=== PATIENT | male | born 1940 | race Caucasian/White ===

== ENCOUNTER 2017-10-31 16:24 | Outpatient (CLI) | payer MEDICARE ==
[~2017-10-31] VITALS: Ht 182.9 cm; Wt 74.9 kg
--- NOTE | ~2017-10-31 | OP ---
PATIENT NAME: MICHAEL CIFUENTES MEDICAL RECORD: [id number] :44 [facility]ATION:[facility] ADMISSION DATE:10/31/17 SURGEON: BRUCE KEENAN MD DATE OF OPERATION: 11/01/2017 PROCEDURES: 1. PTCA stent LAD. 2. Left heart catheterization. 3. Selective coronary angiography. 4. Left ventriculogram. INDICATION: Angina and coronary artery disease. PROCEDURE IN DETAIL: After informed consent was obtained and after a detailed discussion of risks, benefits as well as alternative therapies, the patient elected to proceed with angiogram and angioplasty. The right radial area was prepped and draped in normal sterile fashion. Right radial artery was cannulated via modified Seldinger technique with placement of 6-Israeli sheath. All catheter exchanged through this sheath. FINDINGS: Left ventriculogram was performed in standard 30-degree CASTANEDA view and reveals good cardiac wall motion throughout all segments. Overall ejection fraction estimated at 60%. SELECTIVE CORONARY ANGIOGRAPHY: 1. Left main is with no significant angiographic disease. 2. Left anterior descending has previously placed stents in the mid vessel. Between the stents, there is a non-stented area of at least 80% stenosis. 3. Left circumflex has moderate irregularities, but no flow-limiting stenosis. 4. Right coronary has moderate irregularities, but no flow-limiting stenosis. PTCA STENT OF THE LAD: The stent used was a 3.0 x 22 mm Aryan. Result was 0% residual stenosis. OVERALL IMPRESSION: Successful percutaneous transluminal coronary angioplasty stent of the left anterior descending going from 80% initial stenosis to 0% residual stenosis. TRANSINT:[id number] Voice Confirmation ID: [id number] DOCUMENT ID: [id number] BRUCE KEENAN MD at 1031 CC: [id number] DICTATION DATE: 11/01/17 1243 CHECKROOM CHIEF: 11/01/17 1301 DIS IN 11/01/17 [place] [address]
--- NOTE | ~2017-10-31 | HEMODYNAMI ---
PATIENT:MICHAEL CFIUENTES MEDICAL RECORD: [id number] : 44 [facility] [id number] ADMISSION DATE: 10/31/17 Generatedon:11/01/201712:43 Patient name: MICHAEL CIFUENTES Patient #: [id number] SSN: : 1940 Date of study: 11/01/2017 Page: Of Hemodynamic Procedure Report Patient Data Patient Demographics Procedure consent was obtained First Name: MICHAEL Gender: Male Last Name: ESAU : 1940 [facility] Initial: ALLYSSA Age: 77 year(s) Patient #: [id number] Race: Unknown Additional ID: [id number] Contact details Address: [address] [place] [address] State: [place] City: [place] Zip code: [address] Past Medical History Allergies: No known allergies Admission Admission Data Admission Date: 10/31/2017 Admission Time: 17:55 Room #: D.2126 Lab Results Lab Result Date: 11/01/2017 Lab Result Time: 0:00 Biochemistry Name Units Result Min Max BUN mg/dl 20 --(----)*- 7 18 Creatinine mg/dl 1.4 --(----)*- 0.6 1.3 CBC Name Units Result Min Max Hemoglobin g/dl 15.3 --(-*--)-- 13.5 17.5 Procedure Procedure Types Cath Procedure Diagnostic Procedure C [facility] w/Coronaries Sedation Charges Moderate Sedation up to 15 minutes PCI Procedure Coronary Stent Coronary Stent Initial Procedure Description Procedure Date Procedure Date: 11/01/2017 Procedure Start Time: 12:25 Procedure End Time: 12:43 Procedure Staff Name Function Mitesh Knott MD Performing Physician Leila Palmer RT Monitor Shelby Muir RT Scrub Myron Harris RN Nurse Procedure Data Cath Procedure Fluoroscopy Diagnostic fluoroscopy Total fluoroscopy Time: 4.9 time: 4.9 min min Diagnostic fluoroscopy Total fluoroscopy dose: 174 dose: 174 mGy mGy Contrast Material Contrast Material Type Amount (ml) Isovue 300 69 Entry Location Entry Primary Successful Side Size Upsize Upsize Entry Closure Roca ccessful Closure Location (Fr) 1 (Fr) 2 (Fr) Remarks Device Remarks Radial Right 6 Fr Mechanical artery Short Compression Estimated blood loss: 10 ml Diagnostic catheters Device Type Used For End Catheter Placement DIAGNOSTIC Bridgman 110cm 5 Procedure Fr catheter ([id number]) Procedure Complications No complications Procedure Medications Medication Administration Route Dosage Oxygen etCO2 Nasal cannula 2 l/min Heparin Flush Bag added to field 2 bags (1000units/500ml NS) 0.9% NaCl I.V. 100 ml/hr Radial Cocktail added to field 1 syringe (Verapomil 2mg/Nitro 400mcg/Heparin 1500units) Fentanyl I.V. 50 mcg Versed I.V. 1 mg Fentanyl I.V. 50 mcg Versed I.V. 1 mg Radial Cocktail I.A. 1 syringe (Verapomil 2mg/Nitro 400mcg/Heparin 1500units) Heparin Bolus I.V. 4000 units Hemodynamics Rest HGB: 15.3 (g/dl) Heart Rate: 74 (bpm) Snapshots Pre Cath Intra NCS Post Cath Vital Signs Time Heart Resp SPO2 etCO2 NIBP Rhythm Pain Sedation Rate (ipm) (%) (mmHg) (mmHg) Status Level (bpm) 11:54:35 85 16 91 0 127/71(89) NSR 0 (11) 10(A) , No pain 11:58:51 83 16 92 0 130/66(95) NSR 0 (11) 10(A) , No pain 12:03:11 75 15 94 12.1 127/64(86) NSR 0 (11) 10(A) , No pain 12:07:33 75 16 93 18.1 128/58(85) NSR 0 (11) 10(A) , No pain 12:11:53 74 16 92 9.8 127/62(87) NSR 0 (11) 10(A) , No pain 12:16:09 72 17 94 31.8 123/62(85) NSR 0 (11) 10(A) , No pain 12:20:26 75 16 93 16.6 128/63(93) NSR 0 (11) 10(A) , No pain 12:24:44 76 16 92 33.3 122/68(90) NSR 0 (11) 9(A) , No pain 12:29:06 85 16 89 0 97/55(70) NSR 0 (11) 9(A) , No pain 12:33:18 78 16 92 31.8 109/57(82) NSR 0 (11) 9(A) , No pain 12:37:30 73 16 92 29.5 116/59(84) NSR 0 (11) 9(A) , No pain 12:41:15 74 16 91 3 126/58(84) NSR 0 (11) 9(A) , No pain Medications Time Medication Route Dose Verified Delivered Reason Not es Effectiveness by by 12:00:23 Oxygen etCO2 2 l/min Mitesh Sanches Per physician Nasal Hedy Harris RN cannula 12:00:32 Heparin Flush added 2 bags Mitesh Sanches used for Bag to Hedy Harris RN procedure (1000units/500ml field NS) 12:00:44 0.9% NaCl I.V. 100 Mitesh Sanches Per physician ml/hr Hedy Harris RN 12:00:57 Radial Cocktail added 1 Mitesh Sanches used for (Verapomil to syringe Hedy Harris RN procedure 2mg/Nitro field 400mcg/Heparin 1500units) 12:22:43 Fentanyl I.V. 50 mcg Mitesh Sanches for sedation Hedy Harris RN 12:22:49 Versed I.V. 1 mg Mitesh Sanches for sedation Hedy Harris RN 12:26:30 Fentanyl I.V. 50 mcg Mitesh Sanches for sedation Hedy Harris RN 12:26:33 Versed I.V. 1 mg Mitesh Sanches for sedation Hedy Harris RN 12:27:29 Radial Cocktail I.A. 1 Mitesh Sagastume for (Verapomil syringe Hedy Knott MD vasodilation 2mg/Nitro 400mcg/Heparin 1500units) 12:36:35 Heparin Bolus I.V. 4000 Mitesh Sanches for units Hedy Harris RN anticoagulation Procedure Log Time Note 11:30:35 Myron Harris RN sent for patient. Start room use. 11:38:08 Time tracking: Regular hours 11:38:11 Plan of Care:Hemodynamics will remain stable., Cardiac rhythm will remain stable., Comfort level will be maintained., Respiratory function will remain adequate., Patient/ family verbilizes understanding of procedure., Procedure tolerated without complication., Recovers from procedure without complications.. 11:38:25 Signed procedure consent form obtained from patient. 11:42:21 H&P Date Dictated: 10/31/2017 Within 30 days and on chart.. 11:42:53 Lab Result : BUN 20 mg/dl 11:42:53 Lab Result : Hemoglobin 15.3 g/dl 11:42:53 Lab Result : Creatinine 1.4 mg/dl 11:43:02 Patient allergic to No known allergies 11:45:09 Patient received from Med II to CCL 3 Alert and oriented. Tansferred to table in Supine position. 11:45:10 Warm blankets applied, and david hugger turned on for patient comfort. 11:45:10 Correct patient and procedure confirmed by team. 11:45:11 ECG and BP/O2 sat monitors applied to patient. 11:53:24 Vital chart was started 11:53:25 Baseline sample Acquired. 11:53:29 Rhythm: sinus rhythm 11:53:30 Full Disclosure recording started 11:53:31 Pre-procedure instructions explained to patient. 11:53:32 Pre-op teaching completed and patient verbalized understanding. 11:53:33 Family in waiting room. 11:53:35 Patient NPO since Midnight. 11:53:37 Is the patient allergic to Iodine/contrast media? No. 11:53:38 Was the patient premedicated? No 11:53:39 Is patient on blood thinner?Yes 11:53:42 ACC The patient was administered the following blood thiners within the last 24 hours: ACCPlavix 11:53:51 Previous problem with sedation/anesthesia? No ? 11:53:53 Snore? Yes 11:56:13 Sleep apnea? No 11:56:15 Deviated septum? No 11:56:15 Opens mouth fully? Yes 11:56:16 Sticks out tongue? Yes 11:56:18 Airway obstruction? No ? 11:56:20 Dentures? No ? 11:56:23 Modified Thor's test Ulnar < 7 seconds 11:56:25 Patient pain scale 0/10 ?. 11:56:36 IV patent on arrival in left wrist with 0.9% NaCl at [facility]. 11:56:39 Lab results completed and on chart. 11:56:42 Right Radial & Right Groin area was prepped with chlora-prep and draped in sterile fashion 11:56:43 Alarms reviewed by R. N. :56:43 Sharps counted by scrub and verified by R.N. 12:00:23 Oxygen 2 l/min etCO2 Nasal cannula was administered by Myron Harris RN; Per physician; 12:00:32 Heparin Flush Bag (1000units/500ml NS) 2 bags added to field was administered by Myron Harris RN; used for procedure; 12:00:44 0.9% NaCl 100 ml/hr I.V. was administered by Myron Harris RN; Per physician; 12:00:57 Radial Cocktail (Verapomil 2mg/Nitro 400mcg/Heparin 1500units) 1 syringe added to field was administered by Myron Harris RN; used for procedure; 12:18:11 Zero performed for pressure channel P1 12:21:32 --------ALL STOP TIME OUT------ 12:21:33 Final Timeout: patient, procedure, and site verified with staff and physician. All members of the team are in agreement. 12:21:38 Right groin site verified by team. 12::42 Physical assessment completed. ASA score P 2 - A patient with mild systemic disease as per Mitesh Knott MD. 12:21:46 Sedation plan: IV Moderate Sedation Medication:Versed, Fentanyl 12:22:43 Fentanyl 50 mcg I.V. was administered by Myron Harris RN; for sedation; 12::49 Versed 1 mg I.V. was administered by Myron Harris RN; for sedation; 12:23:03 Use device set Radial Dx or PCI 12:23:06 ACIST Syringe (29866) opened to sterile field. 12:23:07 ACIST Hand Control (18368) opened to sterile field. 12:23:08 ACIST Manifold (59032) opened to sterile field. 12:23:11 Tegaderm 4 x 4 (1626W) opened to sterile field. 12:23:12 Bag Decanter () opened to sterile field. 12:23:12 Medline Cath Pack ([id number]) opened to sterile field. 12:23:22 MBrace Wrist Support ([id number]) opened to sterile field. 12:23:22 SHEATH 6FR Slender ([id number]) opened to sterile field. 12:23:25 DIAGNOSTIC WIRE .035 260cm J wire (838101) opened to sterile field. 12:25:12 Procedure started. 12:25:39 Local anesthetic to right radial artery with Lidocaine 2% by Mitesh Knott MD.INITIAL ACCESS ONLY 12::30 Fentanyl 50 mcg I.V. was administered by Mryon Harris RN; for sedation; 12::30 A 6 Fr Short sheath was inserted into the Right Radial artery 12::33 Versed 1 mg I.V. was administered by Myron Harris RN; for sedation; 12:: A DIAGNOSTIC Bridgman 110cm 5 Fr catheter (161236) was advanced over the wire and used for Procedure. 12::29 Radial Cocktail (Verapomil 2mg/Nitro 400mcg/Heparin 1500units) 1 syringe I.A. was administered by Mitesh Knott MD; for vasodilation; 12::39 LV gram done using CASTANEDA 12:27:42 Injector settings: Ml/sec: 7, Volume: 15, 12:28:47 EF : 60 % 12:29:19 RCA angiography performed. 12:29:37 Catheter removed. 12:29:46 unable to engage LCA 12:30:27 GUIDE 6FR XBLAD 3.5 catheter ([id number]) opened to sterile field. 12:30:40 6 Fr XBLAD 3.5 guide catheter was inserted over the wire 12:32:53 LCA angiography performed. 12:33:59 CHOICE PT Extra Support 182cm wire ([id number]) opened to sterile field. 12:34:03 INFLATOR Merit BasixCompak (SY6197) opened to sterile field. 12:34:14 CHOICE 182 wire advanced. 12:34:15 Wire advanced across lesion. 12:35:10 Inflate balloon Inflation number: 1 A EUPHORA 3.0 x 20 Balloon ([id number]) was prepped and advanced across the Mid LAD, then inflated to 13 KALINA for 0:10 (min:sec). 12:35:20 Inflation number: 2 The EUPHORA 3.0 x 20 Balloon ([id number]) was reinflated across the Mid LAD, to 13 KALINA for 0:10 (min:sec). 12:35:39 Balloon removed over the wire. 12:36:35 Heparin Bolus 4000 units I.V. was administered by Myron Harris RN; for anticoagulation; 12:37:14 Place stent Inflation Number: 3 A ANIKA RX 3.0 x 22 stent ([id number]) was prepped and advanced across the Mid LAD. The stent was deployed at 21 KALINA for 0:10 (min:sec). 12:37:36 Stent catheter was removed intact over wire. 12:37:37 Wire removed. 12:37:37 Guide catheter removed. 12:37:45 TR BAND Standard ([id number]) opened to sterile field. 12:37:52 Procedure ended.(Physican Out) 12:39:22 Sheath removed intact; hemostasis achieved with Mechanical Compression to the Right Radial artery. 12:39:28 Fluoroscopy time 04.90 minutes. 12:39:33 Flurop Dose total: 174 12:39:33 Fluoroscopy dose: 174 mGy 12:39:38 Contrast amount:Isovue 300 69ml. 12:39:40 Sharps counted by scrub and verified by R.N. 12:39:42 TR band inflated with 13cc of air. 12:40:03 Post-procedure physical assessment completed. ASA score P 2 - A patient with mild systemic disease as per Mitesh Knott MD. 12:40:06 Post procedure rhythm: unchanged. 12:40:30 Estimated blood loss: 10 ml 12:40:33 Post procedure instruction explained to patient.Patient verbalizes understanding. 12:40:34 Patient needs reinforcement of post procedure teaching. 12:42:26 Procedure type changed to Cath procedure, Diagnostic procedure, LHC, LHC w/Coronaries, Sedation Charges, Moderate Sedation up to 15 minutes, PCI procedure, Coronary Stent, Coronary Stent Initial 12:43:01 Procedure and supply charges have been captured, reviewed, submitted and are correct. 12:43:04 Procedure Complication : No complications 12:43:06 Vital chart was stopped 12:43:06 See physician's report for complete and final results. 12:43:15 Report given to Pre/Post Procedure Room. 12:43:17 Patient transfered to Pre/Post Procedure Room with Bed. 12:43:19 Procedure ended. 12:43:19 Full Disclosure recording stopped 12:43:23 End room use (Document Last) Intervention Summary Intervention Notes Time ActionType Lesion and Equipment Used Action# Pressure Duration Attributes 12:35:10 Inflate Mid LAD EUPHORA 3.0 x 1 13 00:10 balloon 20 Balloon ([id number]) 12:35:20 Reinflate Mid LAD EUPHORA 3.0 x 2 13 00:10 balloon 20 Balloon ([id number]) 12:37:14 Place stent Mid LAD ANIKA RX 3.0 x 3 21 00:10 22 stent ([id number]) Device Usage Item Name Manufacture Quantity Catalog Number Hospital Part Current M inimal Lot# / Charge Number Stock Stock Serial# Code ACIST Syringe Acist 1 64520 353884 692362 226019 2 0 (56531) Medical Systems Inc ACIST Hand Acist 1 80109 026709 620058 905532 5 Control Medical (38230) Systems Inc ACIST Manifold Acist 1 27481 937525 659175 947746 5 (85920) Medical Systems Inc Tegaderm 4 x 4 3M 1 1626W 505995 978204 135776 5 (1626W) Bag Decanter Microtek 1 2002S 672994 90469 791856 5 (2001S) Medical Inc. Medline Cath Cardinal 1 [id number] 220042 97112 136589 5 Pack Health ([id number]) MBrace Wrist Advanced 1 140-0250-00 556091 70695 936809 5 Support Vascular ([id number]) Dynamics SHEATH 6FR Terumo 1 [id number] 443073 137350 393122 4 0 Slender ([id number]) DIAGNOSTIC St Ciro 1 777112 054227 025546 385287 3 0 WIRE .035 260cm J wire (699711) DIAGNOSTIC Terumo 1 88-7123 392750 578568 566218 5 Bridgman 110cm 5 Fr catheter (826910) GUIDE 6FR Cardinal 1 [id number] 798900 406316 157542 1 0 XBLAD 3.5 Health catheter (20560951) CHOICE PT [place] 1 [id number] 308725 363729 349913 5 Extra Support Scientific 182cm wire ([id number]) INFLATOR Merit Merit 1 RA8075 528536 635241 472353 1 5 OpSource (TV2808) EUPHORA 3.0 x Medtronic 1 [id number] 901728 903882 767459 5 [id number] 20 Balloon ([id number]) ANIKA RX 3.0 x Medtronic 1 [id number] 921473 8421174 127177 5 [id number] 22 stent ([id number]) TR BAND Terumo 1 [id number] 194640 728553 796553 4 0 Standard ([id number]) Signature Audit [place] Stage Time Signature Unsigned Intra-Procedure 11/01/2017 Leila Palmer 12:43:42 PM RT(R) Signatures Monitor : Leila Palmer Signature : RT Date : Time : [id number] [place] [address]
--- NOTE | ~2017-10-31 | DS ---
PATIENT:MICHAEL CIFUENTES :44 MEDICAL RECORD: [id number] DISCHARGE SUMMARY ADMISSION DATE: 10/31/17 DISCHARGE DATE: 11/01/17 DIAGNOSES: 1. Unstable angina. 2. Coronary artery disease. 3. Percutaneous transluminal coronary angioplasty stent left anterior descending this admission. HOSPITAL COURSE: Mr. Cifuentes presents with unstable anginal symptomatology, found to have single vessel disease of the LAD, underwent successful PTCA stent of the LAD. Discharged home with addition of aspirin and Plavix to his medical regimen. Follow up with [facility] in 1 month. TRANSINT:[id number] Voice Confirmation ID: [id number] DOCUMENT ID: [id number] BRUCE KEENAN MD at 1053 CC: [id number] DICTATION DATE: 11/01/17 1241 SPECIAL PROJECTS COORDINATOR: 11/01/17 1312 DIS IN 11/01/17 [address] [place] [address]
--- NOTE | ~2017-10-31 | HP ---
PATIENT: MICHAEL CIFUENTES MEDICAL RECORD: [id number] ACCOUNT: [id number] LOCATION:[address] : 44 ADMISSION DATE: 10/31/17 HISTORY AND PHYSICAL EXAMINATION DIAGNOSES: 1. Unstable angina. 2. Coronary artery disease. 3. Previous PTCA stent 2003. 4. Hyperlipidemia. HISTORY OF PRESENT ILLNESS: This is a gentleman who has a distant history of ischemic heart disease, PTCA stent in 2003 who has had 5 hours of chest pain today. He as well has a pacemaker. His EKG shows atrial pacing, but no ST-T abnormalities, normal ventricular conduction. He continues to have the pain. REVIEW OF SYSTEMS: The patient reports easy bruising but reports no swollen glands. The patient reports no fever, no night sweats, no significant weight gain, no significant weight loss. No significant exercise tolerance. The patient reports no dry eyes, no irritation, no vision change. Patient reports no difficulty hearing and no ear pain. Patient reports no frequent nose bleeds or nose and sinus problems. Patient reports on arm pain on exertion. No shortness of breath while lying down. No history of heart murmur. Patient reports no cough, no wheezing or coughing up blood. Patient reports no abdominal pain, no vomiting. Normal appetite. No diarrhea and not vomiting blood. No nausea and no constipation. Patient reports no incontinence. No difficulty urinating. No hematuria. No increased frequency. Patient reports no muscle aches. No weakness, no arthralgias, no back pain. No swelling of the extremities. Patient reports no abnormal mole, no jaundice, no rashes. Reports no loss of consciousness. No weakness and no numbness. No seizures, dizziness, or headaches. The patient reports no depression, no sleep disturbance, feeling safe in a relationship and no alcohol abuse. Patient reports on fatigue. Reports no runny nose or sinus pressure. No itching, no hives, and no frequent sneezing. PHYSICAL EXAMINATION: GENERAL APPEARANCE: Well-nourished, well-developed, appears stated age. Level of distress, comfortable. PSYCHIATRIC: Mental status, alert, normal affect. Orientation, oriented to time, place and person. EYES: Lids and conjunctiva, noninjected. No discharge, no pallor. ENT: Lips, teeth, gums, normal dentition. Oropharynx, no cyanosis, no pallor. NECK: Carotid arteries, bilateral normal upstroke, no bruits, no thrills. JUGULAR VEINS: No jugular venous pressure or distention. CERVICAL LYMPH NODES: Nontender, nonenlarged. THYROID: Not enlarged. Nontender. No nodules. LUNGS: Respiratory effort, unlabored. CHEST: Normal curvature. No thoracic deformity. No chest wall tenderness. Percussion, resonant. Auscultation, clear. No wheezes, no rales, no rhonchi. CARDIOVASCULAR: Precordial exam, nondisplaced. No heaves or pericardial thrills. Rate and rhythm, regular. Heart sounds, normal S1, normal S2. No S3, no gallop, no rub. Systolic murmur, not heard. Diastolic murmur, not heard. EXTREMITIES: No cyanosis, no edema. Peripheral pulses, full and equal in all extremities, except as noted. No bruits appreciated. ABDOMEN: Soft, nondistended. Normal aorta. No bruit. Nontender. No masses. HISTORY AND PHYSICAL [id number] MICHAEL CIFUENTES Liver, nontender, no hepatomegaly. Spleen, nontender, no splenomegaly. MUSCULOSKELETAL: No joint tenderness. No joint swelling. No erythema. NEUROLOGICAL: Normal gait, normal strength, normal tone. SKIN: Warm and dry. OVERALL IMPRESSION: Unstable angina, most likely he has recurrent hemodynamically significant coronary artery disease. We will proceed with coronary angiography in a.m. Further care depends upon the findings of the angiography. TRANSINT:[id number] Voice Confirmation ID: [id number] DOCUMENT ID: [id number] BRUCE KEENAN MD at 0911 CC: [id number] DICTATION DATE: 10/31/17 163 BRICK PAVER: 10/31/17 1649 ADM IN [address] [place] [address]
[2017-10-31 17:24] LABS: BASOPHILS 0.4 % (0-2); EOSINOPHILS 1.9 % (0-7); HEMATOCRIT 45.8 % (42.0-54.0); HEMOGLOBIN 15.3 g/dL (13.5-17.5); IMMATURE GRANULOCYTES 0.2 % (0-5); LYMPHOCYTES 14.6 % (15-50); MCH 31.9 pg (26.0-34.0); MCHC 33.4 g/dL (31.0-37.0); MCV 95.6 fL (80.0-100.0); MONOCYTES 10.1 % (2-11); NEUTROPHILS 72.8 % (40-80); PLATELET COUNT 205 10x3/uL (130-400); RBC 4.79 10x6/uL (4.20-6.10); RDW 14.2 % (11.5-14.5); WBC 10.2 10x3/uL (4.8-10.8)
[2017-10-31 18:00] LABS: ALKALINE PHOSPHATASE 46 U/L (46-116); ALT (SGPT) 32 U/L (10-68); BILIRUBIN - TOTAL 0.61 mg/dL (0.2-1.3); CALC OSMOLALITY 284 mosm/kg (275-300); CALCIUM 9.6 mg/dL (8.5-10.1); CARBON DIOXIDE 26.9 mmol/L (21.0-32.0); CHLORIDE - SERUM 101 mmol/L (98-107); CREATININE - SERUM 1.3 mg/dL (0.6-1.3); GLUCOSE 110 mg/dL (74-106); PROTEIN - SERUM 7.4 g/dL (6.4-8.2); SODIUM 141 mmol/L (136-145); UREA NITROGEN 20 mg/dL (7-18); eGFR NON AFRICAN AMERICAN 57 mL/min (90-120)
[2017-10-31 18:11] LABS: CHOL - HDL RATIO 5.7 ratio (2.3-4.9); CHOLESTEROL, TOTAL 96 mg/dL (0-200); CKMB 1.1 U/L (0.0-3.6); CREATINE KINASE 42 UL (21-232); HDL CHOLESTEROL 17 mg/dL (32-96); LDL CHOLESTEROL 42 mg/dL (0-100); LDL-HDL RATIO 2.5 ratio (1.5-3.5); TRIGLYCERIDE 188 mg/dL (30-200)
[2017-10-31 18:14] LABS: TROPONIN-I < 0.017 ng/mL (0.000-0.060)
[2017-10-31 18:49] LABS: ANION GAP 18.9 mmol/L (8-16); CALCIUM 9.7 mg/dL (8.5-10.1); CARBON DIOXIDE 24.1 mmol/L (21.0-32.0); CREATININE - SERUM 1.4 mg/dL (0.6-1.3)
[2017-10-31 19:00] VITALS: BP 152/64
[2017-10-31 20:26] LABS: BASOPHILS 0.3 % (0-2); EOSINOPHILS 1.3 % (0-7); HEMATOCRIT 47.1 % (42.0-54.0); HEMOGLOBIN 15.8 g/dL (13.5-17.5); IMMATURE GRANULOCYTES 0.3 % (0-5); LYMPHOCYTES 15.7 % (15-50); MCHC 33.5 g/dL (31.0-37.0); MCV 95.5 fL (80.0-100.0); MEAN PLATELET VOLUME 11.3 fL (7.4-10.4); MONOCYTES 8.1 % (2-11); NEUTROPHILS 74.3 % (40-80); PLATELET COUNT 204 10x3/uL (130-400); RBC 4.93 10x6/uL (4.20-6.10); RDW 14.5 % (11.5-14.5)
[2017-10-31 20:28] LABS: WBC 13.5 10x3/uL (4.8-10.8)
[2017-11-01] VITALS: BP 123/63
[2017-11-01 02:08] VITALS: BP 152/64; BMI 23.9
[2017-11-01 04:00] VITALS: BP 125/54
[2017-11-01] MEDS ORDERED: FENOFIBRATE160 MG PO (07:04)
[2017-11-01] MEDS ORDERED: AVAPRO150 MG PO (07:04)
[2017-11-01] MEDS ORDERED: CRESTOR10 MG PO (07:05)
[2017-11-01 07:44] VITALS: BP 127/56
[2017-11-01 10:55] VITALS: Ht 182.9 cm; Wt 74.9 kg
[2017-11-01] MEDS ORDERED: BAYER CHEWABLE81 MG PO (12:58)
[2017-11-01] MEDS ORDERED: PLAVIX75 MG PO (12:58)
== END 2017-11-01 17:09 | disposition home or self-care (01) ==
LOC: OBSVTIME → D.ER 16:24 → D.CLR 17:55 → D.ER 17:55 → D.M2 17:55 → D.EDHOLD 17:55 → D.M2 18:30 → D.EDHOLD 18:30 → OBSVTIME 19:20 → EDSTATUS 11-01 09:00 → D.CLR 11-01 12:47 → D.M2 11-01 12:47 → D.CLR 11-01 17:09 → D.ER 11-01 17:09 → D.CLR 11-01 17:09
PROVIDERS: Emergency Medicine; Internal Medicine Interventional Cardiology
DX: I25.110 Atherosclerotic heart disease of native coronary artery with unstable angina pectoris (principal); Z95.5 Presence of coronary angioplasty implant and graft; E78.5 Hyperlipidemia, unspecified
CPT/HCPCS: 93458; C9600

== ENCOUNTER 2017-11-03 11:49 | Emergency (ER) | payer MEDICARE ==
[2017-11-01 10:55] VITALS: BMI 22.4
[~2017-11-03 11:49] MED LIST: AVAPRO150 MG PO; BAYER CHEWABLE81 MG PO; CRESTOR10 MG PO; FENOFIBRATE160 MG PO; PLAVIX75 MG PO
[2017-11-03 12:20] LABS: BASOPHILS 0.1 % (0-2); EOSINOPHILS 0.1 % (0-7); HEMATOCRIT 42.6 % (42.0-54.0); HEMOGLOBIN 14.3 g/dL (13.5-17.5); IMMATURE GRANULOCYTES 0.3 % (0-5); LYMPHOCYTES 7.7 % (15-50); MCH 31.7 pg (26.0-34.0); MCHC 33.6 g/dL (31.0-37.0); MCV 94.5 fL (80.0-100.0); MEAN PLATELET VOLUME 10.3 fL (7.4-10.4); MONOCYTES 14.4 % (2-11); NEUTROPHILS 77.4 % (40-80); PLATELET COUNT 167 10x3/uL (130-400); RBC 4.51 10x6/uL (4.20-6.10); WBC 15.1 10x3/uL (4.8-10.8)
[2017-11-03 12:34] LABS: ALBUMIN 2.9 g/dL (3.4-5.0); BILIRUBIN - TOTAL 1.65 mg/dL (0.2-1.3); CALCIUM 8.9 mg/dL (8.5-10.1); CREATININE - SERUM 1.5 mg/dL (0.6-1.3); PROTEIN - SERUM 7.4 g/dL (6.4-8.2)
== END 2017-11-03 14:36 | disposition home or self-care (01) ==
LOC: D.ER 11:49
PROVIDERS: Emergency Medicine
DX: R10.9 Unspecified abdominal pain (principal); Z95.0 Presence of cardiac pacemaker

== ENCOUNTER 2017-11-08 22:42 | Inpatient (IN) | payer MEDICARE, OTHER ==
[~2017-11-08] VITALS: Ht 182.9 cm; Wt 79.4 kg
[2017-11-09 00:35] LABS: BASOPHILS 0.5 % (0-2); EOSINOPHILS 1.5 % (0-7); HEMATOCRIT 44.3 % (42.0-54.0); LYMPHOCYTES 15.3 % (15-50); MCH 31.6 pg (26.0-34.0); MCHC 33.9 g/dL (31.0-37.0); MCV 93.5 fL (80.0-100.0); NEUTROPHILS 70.7 % (40-80); RBC 4.74 10x6/uL (4.20-6.10); RDW 15.2 % (11.5-14.5); WBC 10.6 10x3/uL (4.8-10.8)
[2017-11-09 00:37] LABS: PLATELET COUNT 375 10x3/uL (130-400)
[2017-11-09 00:46] LABS: ALBUMIN 2.1 g/dL (3.4-5.0); ANION GAP 14.4 mmol/L (8-16); BILIRUBIN - TOTAL 0.47 mg/dL (0.2-1.3); CALCIUM 8.9 mg/dL (8.5-10.1); CARBON DIOXIDE 26.9 mmol/L (21.0-32.0); CREATININE - SERUM 1.1 mg/dL (0.6-1.3); POTASSIUM - SERUM 4.3 mmol/L (3.5-5.1); PROTEIN - SERUM 7.3 g/dL (6.4-8.2)
[2017-11-09 08:12] LABS: BASOPHILS 0.2 % (0-2); EOSINOPHILS 1.7 % (0-7); HEMATOCRIT 44.3 % (42.0-54.0); HEMOGLOBIN 14.7 g/dL (13.5-17.5); IMMATURE GRANULOCYTES 1.1 % (0-5); LYMPHOCYTES 18.7 % (15-50); MCH 31.4 pg (26.0-34.0); MCHC 33.2 g/dL (31.0-37.0); MCV 94.7 fL (80.0-100.0); MONOCYTES 10.1 % (2-11); NEUTROPHILS 68.2 % (40-80); PLATELET COUNT 384 10x3/uL (130-400); RBC 4.68 10x6/uL (4.20-6.10); RDW 15.4 % (11.5-14.5); WBC 10.3 10x3/uL (4.8-10.8)
[2017-11-09 08:33] LABS: ALBUMIN 2.2 g/dL (3.4-5.0); ANION GAP 13.5 mmol/L (8-16); BILIRUBIN - TOTAL 0.44 mg/dL (0.2-1.3); CALCIUM 9.1 mg/dL (8.5-10.1); CARBON DIOXIDE 27.9 mmol/L (21.0-32.0); CREATININE - SERUM 1.3 mg/dL (0.6-1.3); POTASSIUM - SERUM 4.4 mmol/L (3.5-5.1); PROTEIN - SERUM 7.3 g/dL (6.4-8.2)
[2017-11-09 14:35] LABS: APPEARANCE HAZY (CLEAR); BILIRUBIN NEGATIVE (NEGATIVE); COLOR YELLOW (YELLOW); GLUCOSE NEGATIVE (NEGATIVE); KETONE NEGATIVE (NEGATIVE); NITRITE NEGATIVE (NEGATIVE); PROTEIN NEGATIVE (NEGATIVE); SPECIFIC GRAVITY 1.015 (1.005-1.020); UROBILINOGEN NORMAL (NORMAL)
[2017-11-09 17:51] LABS: PLT FUNCT.(P2Y12) PLAVIX 253 PRU (194-418)
[2017-11-09 19:44] VITALS: BMI 23.8
[2017-11-09 20:21] VITALS: BP 122/54
[2017-11-10] VITALS (10 sets, daily range): BP systolic 114–128; BP diastolic 42–67; Ht 182.9 cm; Wt 79.4 kg
[2017-11-10 04:15] LABS: BASOPHILS 0.2 % (0-2); EOSINOPHILS 2.5 % (0-7); HEMATOCRIT 45.6 % (42.0-54.0); HEMOGLOBIN 14.9 g/dL (13.5-17.5); IMMATURE GRANULOCYTES 0.7 % (0-5); LYMPHOCYTES 16.5 % (15-50); MCH 31.3 pg (26.0-34.0); MCHC 32.7 g/dL (31.0-37.0); MCV 95.8 fL (80.0-100.0); MEAN PLATELET VOLUME 10.2 fL (7.4-10.4); MONOCYTES 7.2 % (2-11); NEUTROPHILS 72.9 % (40-80); PLATELET COUNT 368 10x3/uL (130-400); RBC 4.76 10x6/uL (4.20-6.10); RDW 15.4 % (11.5-14.5); WBC 12.1 10x3/uL (4.8-10.8)
[2017-11-10 04:32] LABS: INR 1.34 (0.85-1.17); PROTIME 16.1 SECONDS (11.6-15.0)
[2017-11-10 04:33] LABS: APTT 38.5 SECONDS (22.8-39.4)
[2017-11-10 04:50] LABS: ALBUMIN 2.1 g/dL (3.4-5.0); ANION GAP 15.6 mmol/L (8-16); BILIRUBIN - TOTAL 0.5 mg/dL (0.2-1.3); CARBON DIOXIDE 24.4 mmol/L (21.0-32.0); CREATININE - SERUM 1.6 mg/dL (0.6-1.3); MAGNESIUM - SERUM 2.6 mg/dL (1.8-2.4); PROTEIN - SERUM 7.3 g/dL (6.4-8.2)
[2017-11-11 00:56] VITALS: BP 131/63
[2017-11-11 03:28] LABS: BASOPHILS 0.1 % (0-2); EOSINOPHILS 0.1 % (0-7); HEMATOCRIT 39.8 % (42.0-54.0); HEMOGLOBIN 12.9 g/dL (13.5-17.5); IMMATURE GRANULOCYTES 0.4 % (0-5); LYMPHOCYTES 8.7 % (15-50); MCH 31.1 pg (26.0-34.0); MCHC 32.4 g/dL (31.0-37.0); MCV 95.9 fL (80.0-100.0); MEAN PLATELET VOLUME 9.9 fL (7.4-10.4); MONOCYTES 6.7 % (2-11); PLATELET COUNT 388 10x3/uL (130-400); RBC 4.15 10x6/uL (4.20-6.10)
[2017-11-11 03:40] LABS: ANION GAP 15.6 mmol/L (8-16); BILIRUBIN - TOTAL 0.43 mg/dL (0.2-1.3); CARBON DIOXIDE 23.5 mmol/L (21.0-32.0); CREATININE - SERUM 1.4 mg/dL (0.6-1.3); POTASSIUM - SERUM 4.1 mmol/L (3.5-5.1); PROTEIN - SERUM 6.4 g/dL (6.4-8.2)
[2017-11-11 04:44] VITALS: BP 134/68
[2017-11-11 08:39] VITALS: BP 121/60
[2017-11-11 13:09] VITALS: BP 137/53
[2017-11-11 16:19] VITALS: BP 109/55
[2017-11-11 20:43] VITALS: BP 105/56
[2017-11-12 01:20] VITALS: BP 111/56
[2017-11-12 05:52] VITALS: BP 136/56
[2017-11-12 06:37] LABS: BASOPHILS 0.2 % (0-2); EOSINOPHILS 2.2 % (0-7); HEMATOCRIT 37.1 % (42.0-54.0); HEMOGLOBIN 12.1 g/dL (13.5-17.5); IMMATURE GRANULOCYTES 0.3 % (0-5); LYMPHOCYTES 11.4 % (15-50); MCH 31.3 pg (26.0-34.0); MCHC 32.6 g/dL (31.0-37.0); MCV 95.9 fL (80.0-100.0); MEAN PLATELET VOLUME 9.8 fL (7.4-10.4); MONOCYTES 5.8 % (2-11); NEUTROPHILS 80.1 % (40-80); PLATELET COUNT 359 10x3/uL (130-400); RBC 3.87 10x6/uL (4.20-6.10); RDW 15.2 % (11.5-14.5)
[2017-11-12 06:39] LABS: WBC 11.6 10x3/uL (4.8-10.8)
[2017-11-12 06:59] LABS: ANION GAP 10.3 mmol/L (8-16); BILIRUBIN - TOTAL 0.6 mg/dL (0.2-1.3); CARBON DIOXIDE 27.2 mmol/L (21.0-32.0); CREATININE - SERUM 1.1 mg/dL (0.6-1.3); MAGNESIUM - SERUM 2.6 mg/dL (1.8-2.4); PHOSPHOROUS 2.5 mg/dL (2.5-4.9); POTASSIUM - SERUM 3.5 mmol/L (3.5-5.1); PROTEIN - SERUM 6.2 g/dL (6.4-8.2)
[2017-11-12 09:09] VITALS: BP 119/60
[2017-11-12] MEDS ORDERED: CEFUROXIME250 MG PO (11:10)
[2017-11-12 12:30] VITALS: BP 120/62
== END 2017-11-12 14:21 | disposition home or self-care (01) | DRG 417 ==
LOC: D.ER 22:42 → D.MS 11-09 03:20 → D.EDHOLD 11-09 03:20 → D.MS 11-09 18:25
PROVIDERS: Family Medicine; Internal Medicine Cardiovascular Disease; Surgery
PROC: 0FT44ZZ Resection of Gallbladder, Percutaneous Endoscopic Approach (ICD-10-PCS; principal; 2017-11-10 14:30)
DX: K81.0 Acute cholecystitis (principal); K82.2 Perforation of gallbladder; E78.5 Hyperlipidemia, unspecified; I25.10 Atherosclerotic heart disease of native coronary artery without angina pectoris; Z95.0 Presence of cardiac pacemaker